=== PATIENT | male | born 1955 | race Caucasian/White ===

== ENCOUNTER 2021-04-14 10:47 | Inpatient (IN) | payer OTHER, MEDICARE, MEDICAID ==
[~2021-04-14] VITALS: Ht 182.9 cm; Wt 63.6 kg
[~2021-04-14 10:47] MED LIST: ASPI-611 PO; ATOR40TA PO; CHOL500049; METF500T PO; METO50TA7 PO; TICA90TA PO
--- NOTE | 2021-04-14 11:22 | NUR ---
pt states, been vomiting x2days and left flank pain for 2 months. seen at [facility] and ct showed kidney stones.
[2021-04-14] MEDS ORDERED: morphine 4 MG/ML inj SYRINge IV ONE (11:40)
[2021-04-14] MEDS ORDERED: pantoprazole 40MG/NS 100ML BAG 100 ML IV ONE (11:40)
[2021-04-14] MEDS ORDERED: ondansetron/PF 4mg/2ml inj IV ONE (11:40)
[2021-04-14] MEDS ORDERED: normal saline 1000ML IV soln IVB ONE (11:40)
[2021-04-14 12:05] LABS: BASOPHILS # (AUTO) 0.1 X10'3 (0-0.2); BASOPHILS % (AUTO) 0.6 % (0-1); EOSINOPHILS % (AUTO) 0 % (0-6); HEMATOCRIT 36.3 % (42.0-52.0); HEMOGLOBIN 12.1 g/dl (14.0-17.9); LYMPHOCYTES # (AUTO) 0.7 X10'3 (1.1-4.8); LYMPHOCYTES % (AUTO) 6.6 % (21-51); MEAN CORPUSCULAR HGB CONC 33.2 g/dL (33.0-36.5); MEAN CORPUSCULAR VOLUME 84.4 FL (78-98); MEAN PLATELET VOLUME 8.7 FL (7.4-10.4); MONOCYTES # (AUTO) 0.6 X10'3 (0-0.9); MONOCYTES % (AUTO) 6.4 % (2-12); NEUTROPHILS # (AUTO) 8.6 X10'3 (1.8-7.7); NEUTROPHILS % (AUTO) 86.4 % (42-75); PLATELET COUNT 226 X10'3 (140-440); RED CELL DISTRIBUTION WIDTH 12.6 % (11.5-14.5); WHITE BLOOD COUNT 9.9 X10'3 (4.5-11.0)
[2021-04-14 12:19] LABS: ALANINE AMINOTRANSFERASE 19 U/L (12-78); ALBUMIN 3.9 G/DL (3.4-5.0); ALBUMIN/GLOBULIN RATIO 0.9 (1.1-1.5); ALKALINE PHOSPHATASE 64 IU/L (46-116); ANION GAP 14 (8-16); ASPARTATE AMINO TRANSFERASE 14 U/L (10-37); BILIRUBIN,TOTAL 0.7 MG/DL (0.1-1.0); BLOOD UREA NITROGEN 15 MG/DL (7-18); BUN/CREATININE RATIO 6.9 (5.4-32.0); CALCIUM 9.7 MG/DL (8.5-10.1); CHLORIDE 101 MMOL/L (99-107); CREATININE 2.17 MG/DL (0.60-1.10); GLUCOSE 191 MG/DL (70-104); LIPASE 67 U/L (73-393); POTASSIUM 3.7 MMOL/L (3.5-5.1); SODIUM 139 MMOL/L (135-145); TOTAL CARBON DIOXIDE 24.2 MMOL/L (24-32); TOTAL PROTEIN 8.3 G/DL (6.4-8.2); eGFR 30 ML/MIN
--- NOTE | 2021-04-14 15:25 | NUR ---
PT VOIDED 100CC OF SLIGHTLY CLOUDY YELLOW URINE.
[2021-04-14 15:51] LABS: CLARITY,URINE CLOUDY (Clear); COLOR,URINE YELLOW (Yellow); GLUCOSE, URINE 250 mg/dl (Neg); KETONES,URINE NEGATIVE (Neg); LEUKOCYTE ESTERASE ,URINE NEGATIVE (Neg); NITRITES, URINE NEGATIVE (Neg); OCCULT BLOOD,URINE LARGE (Neg); PH,URINE 5.5 (4.8-8.0); PROTEIN,URINE 30 mg/dl (Neg); UROBILINOGEN,URINE 0.2 E.U/dL (0.2-1.0)
[2021-04-14 15:52] LABS: UA COLLECTION TYPE CLN CATCH MIDSTREAM
[2021-04-14 15:54] LABS: PARTIAL THROMBOPLASTIN TIME 24 SECONDS (22-32)
[2021-04-14 15:57] LABS: MUCUS STRANDS FEW /LPF (Neg); RBC,URINE TNTC /HPF (0-2); SQUAMOUS EPITHELIAL CELL,UR FEW /LPF (FEW)
[2021-04-14 16:06] LABS: WBC,URINE 0-4 /HPF (0-4)
[2021-04-14 16:08] LABS: BACTERIA,URINE FEW /HPF (Neg)
[2021-04-14] MEDS: morphine 2 MG/ML inj. syringe IV PRN ×2 (16:58→18:39)
--- NOTE | 2021-04-14 17:01 | NUR ---
dr. bergman at bedside.
--- NOTE | 2021-04-14 17:02 | NUR ---
dr. morgan will write orders for npo after mn and surgery tomorrow.
--- NOTE | 2021-04-14 17:06 | NUR ---
SAM [phone]
[2021-04-14] MEDS ORDERED: MESSAGE TO PHARMACY PO ONE (18:25)
[2021-04-14] MEDS ORDERED: magnesium Cl slow-release 64mg tablet PO PRN (18:25)
[2021-04-14] MEDS ORDERED: potassium Cl 20 mEq SR tablet PO PRN ×2 (18:25)
[2021-04-14] MEDS ORDERED: potassium CL 10mEq/100ml bag 100 ML IV PRN (18:25)
[2021-04-14] MEDS ORDERED: ondansetron/PF 4mg/2ml inj IV PRN (18:25)
[2021-04-14] MEDS ORDERED: acetaminophen 325mg tablet PO PRN ×2 (18:25)
[2021-04-14] MEDS ORDERED: insulin Lispro (HumaLOG) vial - multi-dose SQ SCH (18:25)
[2021-04-14] MEDS ORDERED: diphenhydrAMINE 25mg capsule PO PRN (18:25)
[2021-04-14] MEDS ORDERED: magnesium 4gm in 100ml NS 100 ML IV PRN (18:25)
[2021-04-14] MEDS ORDERED: dextrose ORAL solution 15 GM/59 ML bottle PO PRN ×2 (18:25)
[2021-04-14] MEDS ORDERED: mag hydrox/Alum hydrox/simeth 30ml oral suspension PO PRN (18:25)
[2021-04-14] MEDS ORDERED: magnesium 2GM in 50ml NS 50 ML IV PRN (18:25)
[2021-04-14] MEDS ORDERED: LIDOcaine 2% 10ml TOPICAL JELLY (Urojet) TP ONE (18:25)
[2021-04-14] MEDS ORDERED: bisacodyl 10mg suppository rectal RC PRN (18:25)
[2021-04-14] MEDS ORDERED: morphine 2 MG/ML inj. syringe IV PRN ×2 (18:25)
[2021-04-14] MEDS ORDERED: glucagon, human recombinant 1mg kit SUBCUT PRN (18:25)
[2021-04-14] MEDS ORDERED: HYDROcodone/acetaminophen 10/325mg tab PO PRN (18:25)
[2021-04-14] MEDS ORDERED: magnesium hydroxide 30ml (MOM) UD suspension PO PRN (18:25)
[2021-04-14] MEDS ORDERED: acetaminophen 650mg rectal suppository RC PRN (18:25)
[2021-04-14] MEDS ORDERED: dextrose 50%-water 50ml dispensing syringe IV PRN ×2 (18:25)
[2021-04-14] MEDS ORDERED: HYDROcodone/acetaminophen 5mg/325mg tablet PO PRN (18:25)
[2021-04-14 19:03] LABS: HEMOGLOBIN A1C 5.3 % (4.5-6.2)
--- NOTE | 2021-04-14 19:36 | NUR ---
Received report from PHARMACIST AIDEPAIGE Sellers. Patient to follow shortly.
--- NOTE | 2021-04-14 19:40 | NUR ---
Patient arrived to floor via gurney from ER. A&O and transferred himself from the gurney to bed. 2 RN skin check completed and VS taken.
[2021-04-14 19:42] VITALS: BP 156/77
[2021-04-14] MEDS: K and/or MAG REPLACEMENT MC SCH (20:00)
[2021-04-14] MEDS: normal saline 1000ml 1,000 ML IV SCH (20:09)
--- NOTE | 2021-04-14 20:24 | NUR ---
promotional table spacer promotional table spacer Page Sent promotional table spacer PAGER ID: [phone] MESSAGE: New admit 355B I Leonel. Please call regarding an order. parker pelletier [phone] ([phone] message out [phone] a [phone]) Close [X] Send Another Page Thank you for visiting [facility] promotional table spacer promotional table spacer
--- NOTE | 2021-04-14 20:36 | NUR ---
called back and stated "only to put a mc catheter in if the patient has over 400cc AND is very painful with it. If not very painful, DO NoT insert a mc." also stated to give the tamsulosin tonight and to HOLD the oxybutynin chloride for tonight. Addendum: 04/15/21 at 0634 by Julieth Godwin RN Regarding above note is referring to the surgeon Dr Estrada.
[2021-04-14] MEDS ORDERED: AMLO-140 PO (20:47)
[2021-04-14] MEDS ORDERED: ROSU5TAB PO (20:51)
[2021-04-14] MEDS: piperacillin/tazo 3.375gm/50ml 50 ML IV SCH (20:53)
[2021-04-14] MEDS ORDERED: ALOG25TA2 PO (20:54)
[2021-04-14] MEDS ORDERED: FLO0.4C PO (20:55)
[2021-04-14] MEDS ORDERED: OXYB5TAB16 PO (20:57)
[2021-04-14] MEDS: insulin glargine (Lantus) pen - multi-dose SQ SCH (22:20)
[2021-04-14] MEDS: docusate sod 100mg capsule PO SCH (22:46)
[2021-04-14] MEDS: tamsulosin 0.4mg capsule PO SCH (22:46)
[2021-04-14] MEDS: heparin, porcine 5000 units/ml vial SQ SCH (22:51)
[2021-04-15] VITALS (17 sets, daily range): BP systolic 129–163; BP diastolic 56–83
[2021-04-15] MEDS: piperacillin/tazo 3.375gm/50ml 50 ML IV SCH ×3 (01:33→16:00)
[2021-04-15] MEDS: normal saline 1000ml 1,000 ML IV SCH ×3 (04:44→14:53)
[2021-04-15] MEDS: heparin, porcine 5000 units/ml vial SQ SCH ×2 (06:16→20:00)
--- NOTE | 2021-04-15 06:30 | NUR ---
Problems reprioritized. Patient report given, questions answered & plan of care reviewed with Lisa GIBSON.
[2021-04-15 06:47] LABS: BASOPHILS % (AUTO) 0.1 % (0-1); EOSINOPHILS % (AUTO) 0 % (0-6); HEMATOCRIT 37.9 % (42.0-52.0); HEMOGLOBIN 12.5 g/dl (14.0-17.9); LYMPHOCYTES # (AUTO) 0.8 X10'3 (1.1-4.8); LYMPHOCYTES % (AUTO) 4.7 % (21-51); MEAN CORPUSCULAR VOLUME 84.9 FL (78-98); MEAN PLATELET VOLUME 8.7 FL (7.4-10.4); MONOCYTES % (AUTO) 5.5 % (2-12); NEUTROPHILS % (AUTO) 89.7 % (42-75); PLATELET COUNT 220 X10'3 (140-440); RED BLOOD COUNT 4.46 X10'6 (4.70-6.10); RED CELL DISTRIBUTION WIDTH 12.8 % (11.5-14.5); WHITE BLOOD COUNT 17.9 X10'3 (4.5-11.0)
--- NOTE | 2021-04-15 06:59 | NUR ---
Patient stated he has "silver color ring" with him when he come to the hospital. Per patient hwe was wearing it last night, took it off as it has start falling off then placed the ring on the side table next to him. I kneeled down to look under his bed, checked bedside drawer, closet, digged the garbage bin in the room, and his bucket on his bedside table - I did not found any ring. Patient states "it's okay!". I told patient that we will let him know if we found it.
[2021-04-15 07:06] LABS: ALANINE AMINOTRANSFERASE 16 U/L (12-78); ALBUMIN 3.6 G/DL (3.4-5.0); ALBUMIN/GLOBULIN RATIO 0.8 (1.1-1.5); ALKALINE PHOSPHATASE 53 IU/L (46-116); ANION GAP 14 (8-16); ASPARTATE AMINO TRANSFERASE 18 U/L (10-37); BILIRUBIN,TOTAL 1.3 MG/DL (0.1-1.0); BLOOD UREA NITROGEN 20 MG/DL (7-18); BUN/CREATININE RATIO 6.7 (5.4-32.0); CALCIUM 9.1 MG/DL (8.5-10.1); CHLORIDE 104 MMOL/L (99-107); CHOL/HDL RATIO 2.2 (0.00-4.99); CHOLESTEROL 99 MG/DL (0-200); GLUCOSE 167 MG/DL (70-104); HDL CHOLESTEROL 46 MG/DL (35-60); LDL CHOLESTEROL 39 MG/DL (50-100); MAGNESIUM 1.9 MG/DL (1.5-2.4); PHOSPHORUS 5.8 MG/DL (2.3-4.5); POTASSIUM 3.6 MMOL/L (3.5-5.1); SODIUM 139 MMOL/L (135-145); TOTAL CARBON DIOXIDE 21.4 MMOL/L (24-32); TOTAL PROTEIN 8.1 G/DL (6.4-8.2); TRIGLYCERIDES 67 MG/DL (20-135); eGFR 21 ML/MIN
[2021-04-15] MEDS: K and/or MAG REPLACEMENT MC SCH ×2 (08:00→20:00)
[2021-04-15] MEDS: docusate sod 100mg capsule PO SCH ×2 (08:00→20:59)
--- NOTE | 2021-04-15 08:31 | NUR ---
Paged Dr. Carson PAGER ID: [phone] MESSAGE: Surgical Lisa Guerra ext [phone]. RE: Leonel Matos. Patient preop EKG shows anterior ST elevation probably due to LVH. Do you want us to order anything? Denies chest pain, he said he has implanted heart monitor. K 3.6 Mg 1.9.
[2021-04-15] MEDS ORDERED: AMLO5TAB PO (08:58)
[2021-04-15] MEDS ORDERED: LISI20TA28 PO (08:58)
[2021-04-15] MEDS ORDERED: CHOL10006 PO (08:58)
[2021-04-15] MEDS ORDERED: piperacillin/tazo 3.375gm/50ml 50 ML IV SCH (09:10)
[2021-04-15] MEDS: amLODIPine 5mg tablet PO SCH (09:12)
[2021-04-15] MEDS: aspirin 81mg, enteric-coated 1 TAB TABLET.DR PO SCH (09:13)
[2021-04-15] MEDS: cholecalciferol (vitamin D3) 1,000 unit (25mcg) tablet PO SCH (09:13)
[2021-04-15] MEDS: oxybutynin 5mg tablet PO SCH (09:15)
[2021-04-15] MEDS: lisinopril 20mg tablet PO SCH (09:15)
[2021-04-15] MEDS ORDERED: tamsulosin 0.4mg capsule PO SCH (09:15)
--- NOTE | 2021-04-15 09:54 | NUR ---
Dr. Carson seen the EKG done this am as preop EKG. Dr. Carson aware that patient going for surgery today at 16:00
[2021-04-15] MEDS: metoprolol succinate 25mg (24-HOUR) SR. Tablet PO SCH (10:42)
[2021-04-15] MEDS: atorvastatin 20mg tablet PO SCH (12:57)
--- NOTE | 2021-04-15 14:43 | NUR ---
Malnutrition screen: Pt admitted w/ flank pain that has been lasting for a few months and nausea/vomiting since 2 days [employer]; found to have obstructed L ureter per EMR. Pt currently NPO to go to OR today per documentation. Pt reports he has had this pain since about November and has since had a decrease in appetite. Pt states his usual wt is about 175lb, previous scaled wt in 2016 shows 176lb. Pt states he thinks he started to lose wt in November and has since lost ~30lb. Current scaled wt this admit shows 140lb. This would represent a ~20% wt loss in 6 months. Pt observed at bedside w/ mild temporal, clavicle, and orbital wasting and presents w/ mild muscle weakness. No edema noted. At this time, pt meets minimum criteria for malnutrition, MD notified. Pt also states he needs soft to chew foods as he does not have the top row of teeth, though pt does not think he needs puree foods. Noted A1C 5.3. Will continue to monitor. Recs: 1. Advance to Regular, soft to chew foods per pt preference as medically indicated 2. Monitor need for ONS 3. Bowel care per rx 4. Weekly wts Addendum: 04/15/21 at [address] Amended: Links added.
--- NOTE | 2021-04-15 15:45 | NUR ---
Patient just went to OR for surgery Addendum: 04/15/21 at 1618 by Lisa Gustafson RN Bag of IV Zosyn IV was sent to OR with patient. Zosyn was placed inside the ziplock bag then placed in the chart. This was endorsed to Isabella GIBSON from Recovery Room.
[2021-04-15] MEDS ORDERED: ondansetron/PF 4mg/2ml inj IV PRN (16:10)
[2021-04-15] MEDS ORDERED: ringers solution, lacted 1,000 ML IV SCH (16:10)
[2021-04-15] MEDS ORDERED: proCHLORperazine 10 MG/2 ml inj IV PRN (16:10)
[2021-04-15] MEDS ORDERED: meperidine/PF 25mg/ml syringe IV PRN ×3 (16:10)
[2021-04-15] MEDS ORDERED: morphine 2 MG/ML inj. syringe IV PRN (16:10)
[2021-04-15] MEDS ORDERED: morphine 4 MG/ML inj SYRINge IV PRN (16:10)
[2021-04-15] MEDS ORDERED: sevoflurane 250ml liquid IH ONE (16:32)
[2021-04-15] MEDS ORDERED: midazolam 1 mg/ML 2ml injection ONE (16:37)
[2021-04-15] MEDS ORDERED: fentaNYL/PF 50MCG/1 ML 2ML syringe ONE (16:37)
[2021-04-15] MEDS ORDERED: iohexol 300 MG/1 ML 50ml polymer ONE (16:50)
[2021-04-15] MEDS ORDERED: rocuronium 10mg/ml inj IV ONE (16:51)
[2021-04-15] MEDS ORDERED: LIDOcaine 2% (20mg/ml) 5ml vial ONE (16:51)
[2021-04-15] MEDS ORDERED: propofol inj 20 ML IV ONE (16:51)
[2021-04-15] MEDS ORDERED: ondansetron/PF 4mg/2ml inj ONE (17:28)
[2021-04-15] MEDS ORDERED: sugammadex 200mg/2ml injection IV ONE (17:28)
--- NOTE | 2021-04-15 17:40 | NUR ---
Received from OR via , accompanied by Anesthesiologist DR SPENCER and report given by Anesthesiolgist. AWAKENS TO VOICE. VITALS STABLE. RADHA PAIN.
--- NOTE | 2021-04-15 18:10 | NUR ---
Patient in room [facility]. I have received report from Lisa GIBSON and had the opportunity to ask questions and assume patient care.
--- NOTE | 2021-04-15 18:25 | NUR ---
Patient still in the OR at this time. Report given to Julieth GIBSON
--- NOTE | 2021-04-15 18:40 | NUR ---
Report called to receiving nurse. Transferred via BED Belongings . Special Issues communicated to receiving nurse. AWAKE AND ORINTED. VITALS STABLE. RADHA PAIN. TO SURGICAL [facility] 355B AT THIS TIME.
--- NOTE | 2021-04-15 18:45 | NUR ---
Patient arrived to floor via bed from recovery room. Patient alert and oriented and in no distress at this time. Post op VS initiated.
[2021-04-15] MEDS: tamsulosin 0.4mg capsule PO SCH (20:59)
[2021-04-15] MEDS: insulin glargine (Lantus) pen - multi-dose SQ SCH (22:41)
[2021-04-16] VITALS: BP 148/63
[2021-04-16] MEDS: piperacillin/tazo 3.375gm/50ml 50 ML IV SCH ×2 (00:04→07:12)
[2021-04-16 04:00] VITALS: BP 139/72
[2021-04-16] MEDS: normal saline 1000ml 1,000 ML IV SCH (05:47)
[2021-04-16 06:08] LABS: BASOPHILS % (AUTO) 0.2 % (0-1); EOSINOPHILS % (AUTO) 0 % (0-6); HEMATOCRIT 28.8 % (42.0-52.0); HEMOGLOBIN 9.6 g/dl (14.0-17.9); LYMPHOCYTES # (AUTO) 0.6 X10'3 (1.1-4.8); LYMPHOCYTES % (AUTO) 5.1 % (21-51); MEAN CORPUSCULAR HEMOGLOBIN 27.9 PG (27.0-31.0); MEAN CORPUSCULAR HGB CONC 33.2 g/dL (33.0-36.5); MEAN CORPUSCULAR VOLUME 84.2 FL (78-98); MEAN PLATELET VOLUME 8.6 FL (7.4-10.4); MONOCYTES # (AUTO) 0.7 X10'3 (0-0.9); MONOCYTES % (AUTO) 5.8 % (2-12); NEUTROPHILS # (AUTO) 10.7 X10'3 (1.8-7.7); NEUTROPHILS % (AUTO) 88.9 % (42-75); PLATELET COUNT 163 X10'3 (140-440); RED BLOOD COUNT 3.42 X10'6 (4.70-6.10); RED CELL DISTRIBUTION WIDTH 12.6 % (11.5-14.5); WHITE BLOOD COUNT 12.1 X10'3 (4.5-11.0)
[2021-04-16 06:23] LABS: ALANINE AMINOTRANSFERASE 10 U/L (12-78); ALBUMIN 2.3 G/DL (3.4-5.0); ALBUMIN/GLOBULIN RATIO 0.6 (1.1-1.5); ALKALINE PHOSPHATASE 32 IU/L (46-116); ANION GAP 8 (8-16); ASPARTATE AMINO TRANSFERASE 13 U/L (10-37); BILIRUBIN,TOTAL 0.7 MG/DL (0.1-1.0); BLOOD UREA NITROGEN 20 MG/DL (7-18); BUN/CREATININE RATIO 10.9 (5.4-32.0); CALCIUM 8.1 MG/DL (8.5-10.1); CHLORIDE 109 MMOL/L (99-107); CREATININE 1.84 MG/DL (0.60-1.10); GLUCOSE 105 MG/DL (70-104); MAGNESIUM 1.9 MG/DL (1.5-2.4); PHOSPHORUS 2.5 MG/DL (2.3-4.5); SODIUM 143 MMOL/L (135-145); TOTAL CARBON DIOXIDE 26.3 MMOL/L (24-32); eGFR 37 ML/MIN
--- NOTE | 2021-04-16 06:30 | NUR ---
Problems reprioritized. Patient report given, questions answered & plan of care reviewed with Lisa GIBSON.
--- NOTE | 2021-04-16 06:36 | NUR ---
Patient in room [facility]. I have received report from Julieth GIBSON and had the opportunity to ask questions and assume patient care.
[2021-04-16] MEDS: atorvastatin 20mg tablet PO SCH (07:43)
[2021-04-16] MEDS: cholecalciferol (vitamin D3) 1,000 unit (25mcg) tablet PO SCH (07:44)
[2021-04-16] MEDS: oxybutynin 5mg tablet PO SCH (07:44)
[2021-04-16] MEDS: lisinopril 20mg tablet PO SCH (07:44)
[2021-04-16] MEDS: metoprolol succinate 25mg (24-HOUR) SR. Tablet PO SCH (07:45)
[2021-04-16] MEDS: aspirin 81mg, enteric-coated 1 TAB TABLET.DR PO SCH (07:45)
[2021-04-16] MEDS: amLODIPine 5mg tablet PO SCH (07:45)
[2021-04-16] MEDS: heparin, porcine 5000 units/ml vial SQ SCH (07:46)
[2021-04-16] MEDS: K and/or MAG REPLACEMENT MC SCH (08:00)
[2021-04-16] MEDS: docusate sod 100mg capsule PO SCH (08:00)
[2021-04-16 08:17] VITALS: BP 136/66
[2021-04-16] MEDS ORDERED: CEFD300C3 PO (11:11)
[2021-04-16] MEDS ORDERED: LACT1CAP26 PO (11:11)
--- NOTE | 2021-04-16 12:05 | NUR ---
DM consult: Pt with A1c 5.3%, DM education not warranted at this time. Will continue to follow. Addendum: 04/16/21 at [address] Amended: Links added.
--- NOTE | 2021-04-16 12:10 | NUR ---
Discharged patient home with his . Discharge instructions were given by Kandaec GIBSON while I am on my lunch break. Patient was discharged with his belongings.
== END 2021-04-16 12:10 | disposition home or self-care (01) | DRG 661 ==
LOC: ER 10:48 → ED HOLD 18:27 → SUR 3N 19:40
PROVIDERS: ADMIT Family Medicine; ATTEND Family Medicine
PROC: 0T7D8ZZ Dilation of Urethra, Via Natural or Artificial Opening Endoscopic (ICD-10-PCS; 2021-04-15)
PROC: BT1F1ZZ Fluoroscopy of Left Kidney, Ureter and Bladder using Low Osmolar Contrast (ICD-10-PCS; 2021-04-15)
PROC: 0T778DZ Dilation of Left Ureter with Intraluminal Device, Via Natural or Artificial Opening Endoscopic (ICD-10-PCS; principal; 2021-04-15 16:32)
DX: N13.9 Obstructive and reflux uropathy, unspecified (principal); E11.9 Type 2 diabetes mellitus without complications; N20.1 Calculus of ureter; E78.5 Hyperlipidemia, unspecified; I10 Essential (primary) hypertension; I25.10 Atherosclerotic heart disease of native coronary artery without angina pectoris; N35.911 Unspecified urethral stricture, male, meatal; N40.0 Benign prostatic hyperplasia without lower urinary tract symptoms; F12.90 Cannabis use, unspecified, uncomplicated; Z20.822 Contact with and (suspected) exposure to COVID-19; Q54.9 Hypospadias, unspecified; Z79.82 Long term (current) use of aspirin; Z79.899 Other long term (current) drug therapy; Z82.3 Family history of stroke; I25.2 Old myocardial infarction; Z85.46 Personal history of malignant neoplasm of prostate; Z87.442 Personal history of urinary calculi; Z87.891 Personal history of nicotine dependence; Z92.3 Personal history of irradiation; Z95.1 Presence of aortocoronary bypass graft; Z95.5 Presence of coronary angioplasty implant and graft; Z88.5 Allergy status to narcotic agent; Z88.1 Allergy status to other antibiotic agents
CPT/HCPCS: 36415; 71045; 74176; 76000; 76770; 80053; 80061; 81001; 82948; 83036; 83605; 83690; 83735; 84100; 85025; 85610; 85730; 87040; 87081; 87635; 93005; 96374; 96375; 96376; 99285; A4618; A7000; C1758; C1769; C1894; C2617; C9113; G0378; J1644; J1815; J2250; J2270; J2405; J2543; J2704; J3010; J3490; J7030; J7120; Q9967